=== PATIENT | female | born 1965 | race Caucasian/White ===

== ENCOUNTER → 2025-05-19 15:51 | Outpatient (REF) | payer BC, SELFPAY | LOC: RAD 15:51 | PROVIDERS: ATTENDING PHYSICIAN Nurse Practitioner Adult Health | DX: R10.12 Left upper quadrant pain (principal); Z87.42 Personal history of other diseases of the female genital tract; R39.89 Other symptoms and signs involving the genitourinary system; R33.9 Retention of urine, unspecified; M54.50 Low back pain, unspecified | CPT/HCPCS: 74170; Q9967 ==